=== PATIENT | male | born 1930 | race Hispanic/Latino ===

== ENCOUNTER 2016-08-01 08:52 | Inpatient (IN) | payer MEDICARE, OTHER ==
--- NOTE | 2016-08-01 09:22 | C.PDOC ---
History Of Present Illness Patient is an 85 year old male with a history of severe aortic stenosis with gradually worsening SOB/ROSARIO for 6 months who was referred by Dr. Mosley for a cardiac cath today. Patient states he was cleared to eat toast this morning by Dr. Mosley. Has no associated chest pain, nausea, vomiting, swelling or fever. REFERRED DR MOSLEY FOR CARDIAC CATH TODAY. HO SEVERE AORTIC STENOSIS W GRADUALLY WORSENING SOB/ROSARIO X 6 MONTHS. NO ASSOC CP, NV, SWELL. NO FEVER. PS WAS CLEARED TO EAT TOAST THIS MORNING BY DR MOSLEY EXAM NEG Time Seen by Provider: 08/01/16 09:10 Chief Complaint (Nursing): Medical Clearance History Per: Patient History/Exam Limitations: no limitations Onset/Duration Of Symptoms: Hrs Current Symptoms Are (Timing): Still Present Past Medical History Reviewed: Historical Data, Nursing Documentation, Vital Signs Vital Signs: Last Vital Signs Temp 97.6 F 08/02/16 13:17 Pulse 69 08/02/16 13:17 Resp 18 08/02/16 13:17 BP 126/72 08/02/16 13:17 Pulse Ox 96 08/02/16 13:17 - Medical History Other PMH: Aortic stenosis - Hyperpot Procedures MEASURE CARDIAC SAMPL & PRESSURE, BILATERAL, PERC (08/01/16) PLAIN RADIOGRAPHY OF MULT COR ART USING OTH CONTRAST (08/01/16) PLAIN RADIOGRAPHY OF RIGHT AND LEFT HEART USING OTH CONTRAST (08/01/16) Family History: States: Unknown Family Hx - Social History Hx Alcohol Use: No Hx Substance Use: No - Immunization History Hx Tetanus Toxoid Vaccination: No Hx Influenza Vaccination: No Hx Pneumococcal Vaccination: No Review Of Systems Except As Marked, All Systems Reviewed And Found Negative. Constitutional: Negative for: Fever Cardiovascular: Negative for: Chest Pain Gastrointestinal: Negative for: Nausea, Vomiting Musculoskeletal: Negative for: Other (Swelling) Physical Exam - Physical Exam Appears: Well, Non-toxic Skin: Normal Color, Warm, Dry Head: Atraumatic, Normacephalic Oral Mucosa: Moist Chest: Symmetrical, No Tenderness Cardiovascular: Rhythm Regular, No Murmur Respiratory: Other (No acute respiratory distress. Patient speaking in complete sentences.) Gastrointestinal/Abdominal: Soft, No Tenderness Back: No CVA Tenderness Neurological/Psych: Oriented x3, Normal Speech, Normal Cognition ED Course And Treatment - Laboratory Results Result Diagrams: 08/02/16 10:45 08/02/16 07:50 ECG: Interpreted By Me ECG Rhythm: Sinus Rhythm, 1st Degree HB Interpretation Of ECG: TWI I, II, V4-6 NO PRIOR Rate From EC O2 Sat by Pulse Oximetry: 96 Pulse Ox Interpretation: Normal Progress Note: Blood work, EKG, labor crew supervisor, and urinalysis ordered. IV fluids ordered. - Physician Consult Information Time Consulting Physician Contacted: 09:20 Physician Contacted: Fam Aguiar Outcome Of Conversation: C/F PMD, WILL ADMIT Disposition Counseled Patient/Family Regarding: Studies Performed, Diagnosis - Disposition Disposition: HOSPITALIZED Disposition Time: :22 Condition: STABLE - POA Present On Arrival: None - Clinical Impression Clinical Impression: Dyspnea, Aortic stenosis, Abnormal electrocardiogram - Scribe Statement The provider has reviewed the documentation as recorded by the Scribe Osorio Haywood All medical record entries made by the Scribe were at my direction and personally dictated by me. I have reviewed the chart and agree that the record accurately reflects my personal performance of the history, physical exam, medical decision making, and the department course for this patient. I have also personally directed, reviewed, and agree with the discharge instructions and disposition. Decision To Admit - Pt Status Changed To: Hospital Disposition Of: Inpatient - Admit Certification Admit to Inpatient:: After my assessment, the patient will require hospitalization for at least two midnights. This is because of the severity of symptoms shown, intensity of services needed, and/or the medical risk in this patient being treated as an outpatient. - InPatient: Physician Admission Certification: I certify that this patient requires 2 or more midnights of care for the following reason:: SEE NOTE - . Bed Request Type: Telemetry Admitting Physician: Fam Aguiar Patient Diagnosis: Dyspnea, Aortic stenosis, Abnormal electrocardiogram
[2016-08-01] MEDS ORDERED: Sodium Chloride 0.9% 1,000 ML IV ONE ×2 (09:23→14:16)
--- NOTE | 2016-08-01 09:39 | RAD ---
PROCEDURE: CHEST RADIOGRAPH, 1 VIEW HISTORY: Pre Op COMPARISON: None available. FINDINGS: LUNGS: There is mild pulmonary venous congestion. There is no focal consolidation. PLEURA: No pneumothorax or pleural fluid seen. CARDIOVASCULAR: There is moderate cardiomegaly. Atherosclerotic aortic arch calcifications are present. . OSSEOUS STRUCTURES: Within normal limits for the patient's age. VISUALIZED UPPER ABDOMEN: Normal. OTHER FINDINGS: None. IMPRESSION: Moderate cardiomegaly and mild pulmonary venous congestion. No active pulmonary disease.
[2016-08-01 10:11] LABS: BASO # 0.1 K/uL (0.0-0.2); BASO % 0.8 % (0.0-2.0); EOS # 0.2 K/uL (0.0-0.7); EOS % 2.3 % (0.0-4.0); HEMATOCRIT 39.6 % (35.0-51.0); LYMPH # 0.9 K/uL (1.0-4.3); LYMPH % 14.1 % (20.0-40.0); MEAN CELL VOLUME 91.4 fL (80.0-94.0); MEAN CORPUSCULAR HEMOGLOBIN 30.1 pg (27.0-31.0); MEAN CORPUSCULAR HGB CONC 32.9 g/dL (33.0-37.0); MEAN PLATELET VOLUME 11.3 fL (7.2-11.7); MONO # 0.6 K/uL (0.0-0.8); MONO % 9.2 % (0.0-10.0); NRBC % 0.1 % (0.0-2.0); WHITE BLOOD COUNT 6.7 K/uL (4.8-10.8)
[2016-08-01 10:17] LABS: CHLORIDE 102 mmol/L (98-107); POTASSIUM 4.5 mmol/L (3.6-5.2); SODIUM 135 mmol/L (132-148)
[2016-08-01 10:19] LABS: BILIRUBIN,TOTAL 1.6 mg/dL (0.2-1.3); GFR AFRICAN-AMERICAN > 60; INR 1.2
[2016-08-01 10:20] LABS: ALB/GLOB RATIO 1.4 (1.0-2.1); ALKALINE PHOSPHATASE 74 U/L (38-126); ALT/SGPT 11 U/L (21-72); AST/SGOT 28 U/L (17-59); BLOOD UREA NITROGEN 18 mg/dL (9-20); CARBON DIOXIDE 22 mmol/L (22-30); GLUCOSE,RANDOM 89 mg/dL (75-110); TOTAL PROTEIN 6.1 g/dL (6.3-8.3)
[2016-08-01 10:21] LABS: CALCIUM 7.7 mg/dl (8.6-10.4)
[2016-08-01 11:42] LABS: RBC URINE < 1 /hpf (0-3); URINE BILIRUBIN NEGATIVE (NEGATIVE); URINE BLOOD NEGATIVE (NEGATIVE); URINE COLOR Yellow (YELLOW); URINE GLUCOSE (UA) NORMAL (Normal); URINE KETONE NEGATIVE (NEGATIVE); URINE LEUKOCYTE ESTERASE NEG Leu/uL (Negative); URINE PROTEIN NEGATIVE (NEGATIVE); WBC URINE < 1 /hpf (0-5)
[2016-08-01] MEDS ORDERED: Midazolam 2 MG/2 ML VIAL ONE (12:30)
[2016-08-01] MEDS ORDERED: Lidocaine 2% Inj (20ml) ONE (12:39)
--- NOTE | 2016-08-01 13:22 | CP.PCM.HP ---
<Bryson Rachel - Last Filed: 08/01/16 15:52> History of Present Illness - History of Present Illness History of Present Illness: CC: heart valve replacement on 85 M with PMH of Aortic stenosis was sent to the ED by Dr. Mosley in anticipation of TAVR on . The patient has been steadily getting slower according to his son and was recently seen by Dr. Mosley. Echo showed significant aortic stenosis and Dr. Mosley suggested a valve replacement. Patient is set to receive a cardiac cath today. Further pre-op evaluations will be done this admission with a planned transfer to [facility] on for the valve replacement. He reports shortness of breath after walking 1-2 blocks, relieved by rest. Denies any pain. Patient sleeps with one pillow. Denied fever/chills, headache, sob, palpitations, cp, abd pain, n/v/d. PMD: Dr. Nafisa Mccoy Cardio: Dr. 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 Mccoy which leads to spontaneous bruises that resolve on their own, macular degeneration in the left eye, cataract in the right, t12 compression fracture. Abdominal aorta enlargement Meds: travatan eye drops 1 drop in each eye QHS, alphagan eye drops 1 drop in each eye BID, benefiber QAM, multivitamin Allergies: NKDA PSH: hernia surgery >10 years ago, appendectomy or cholecystectomy in adolescence FH: Mother had DM, at 62 yo Social: Lives alone in an apt on [facility]. Denies smoking, alcohol and illicit drug use. 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 6/6 ADLs. Present on Admission - Present on Admission Any Indicators Present on Admission: No History of DVT/PE: No History of Uncontrolled Diabetes: No Urinary Catheter: No Decubitus Ulcer Present: No Review of Systems - Review of Systems All systems: reviewed and no additional remarkable complaints except - Constitutional Constitutional: Weakness - Cardiovascular Cardiovascular: Dyspnea on Exertion (gets short of breath after walking 1- 2 blocks), Lightheadedness Past Patient History - Past Social History Smoking Status: Never Smoked Alcohol: None Drugs: Denies Home Situation {Lives}: Alone - HEENT Hx Macular Degeneration: Yes - PSYCHIATRIC Hx Substance Use: No - SURGICAL HISTORY Hx Herniorrhaphy: Yes - ANESTHESIA Hx Anesthesia: Yes Hx Anesthesia Reactions: No Meds Allergies/Adverse Reactions: Allergies Allergy/AdvReac Type Severity Reaction Status Date / Time No Known Allergies Allergy Verified 08/01/16 09:01 Physical Exam - Constitutional Appears: Well, Non-toxic - Head Exam Head Exam: ATRAUMATIC, NORMAL INSPECTION, NORMOCEPHALIC - Eye Exam Eye Exam: EOMI, Normal appearance Pupil Exam: PERRL - ENT Exam ENT Exam: Mucous Membranes Moist - Neck Exam Neck exam: Positive for: Normal Inspection - Respiratory Exam Respiratory Exam: Clear to Auscultation Bilateral, NORMAL BREATHING PATTERN - Cardiovascular Exam Cardiovascular Exam: Systolic Murmur (3/6 crescendo/decrescendo murmur) - GI/Abdominal Exam GI & Abdominal Exam: Normal Bowel Sounds, Soft. absent: Tenderness - Rectal Exam Rectal Exam: Deferred - Extremities Exam Extremities exam: Positive for: normal capillary refill, pedal pulses present. Negative for: calf tenderness - Back Exam Back exam: NORMAL INSPECTION. absent: CVA tenderness (L), CVA tenderness (R) - Neurological Exam Neurological exam: Alert, CN II-XII Intact, Normal Gait (ambulates with a cane) , Oriented x3 - Psychiatric Exam Psychiatric exam: Normal Affect, Normal Mood - Skin Skin Exam: Dry, Intact, Normal Color, Warm Additional comments: cath site clean, dry, intact without hematoma dressing freshly placed Results - Vital Signs Recent Vital Signs: Last Vital Signs Temp 98.1 F 08/01/16 11:27 Pulse 69 08/01/16 11:27 Resp 16 08/01/16 11:27 BP 127/70 08/01/16 11:27 Pulse Ox 96 08/01/16 11:27 - Labs Result Diagrams: 08/01/16 10:05 08/01/16 10:05 Labs: Laboratory Results - last 24 hr 08/01/16 08/01/16 10:05 11:27 WBC 6.7 RBC 4.33 L Hgb 13.0 Hct 39.6 MCV 91.4 MCH 30.1 MCHC 32.9 L RDW 15.0 H Plt Count 132 MPV 11.3 Neut % (Auto) 73.6 Lymph % (Auto) 14.1 L [place] % (Auto) 9.2 Eos % (Auto) 2.3 Baso % (Auto) 0.8 Neut # 5.0 Lymph # 0.9 L [place] # 0.6 Eos # 0.2 Baso # 0.1 PT 13.2 H INR 1.2 APTT 30 Sodium 135 Potassium 4.5 Chloride 102 Carbon Dioxide 22 Anion Gap 16 BUN 18 Creatinine 0.9 Est GFR ( Amer) > 60 Est GFR (Non-Af Amer) > 60 Random Glucose 89 Calcium 7.7 L Total Bilirubin 1.6 H AST 28 ALT 11 L D Alkaline Phosphatase 74 Total Protein 6.1 L Albumin 3.6 Globulin 2.5 Albumin/Globulin Ratio 1.4 Urine Color Yellow Urine Clarity Clear Urine pH 6.0 Ur Specific Mans[place] 1.015 Urine Protein Negative Urine Glucose (UA) Normal Urine Ketones Negative Urine Blood Negative Urine Nitrate Negative Urine Bilirubin Negative Urine Urobilinogen 4.0 Ur Leukocyte Esterase Neg Urine WBC (Auto) < 1 Urine RBC (Auto) < 1 Blood Type O POSITIVE Antibody Screen Negative Assessment & Plan - Assessment and Plan (Free Text) Plan: 1. Aortic Stenosis Admit to telemetry Cardiology consult, Dr. Mosley, help appreciated Cardiac Cath: Nononbstructive coronaries, Pulm HTN, Severe aortic stenosis. Distal LAD 50% stenosis in intramuscular course. Transfer to [facility] for TAVR ASA 81 mg PO daily Lovenox 40 mg SC daily NS 50 cc/hr Crestor 5 mg PO HS Zofran 4 mg IVP Q6H PRN HA1C, TSH/T4, Lipid panel f/u daily labs I's & O's HHD 2. Prophylactic Measures Protonix 40 mg PO daily Lovenox 40 mg SC daily <Fam Aguiar - Last Filed: 08/01/16 17:00> Results - Vital Signs Recent Vital Signs: Last Vital Signs Temp 98.1 F 08/01/16 11:27 Pulse 69 08/01/16 11:27 Resp 16 08/01/16 11:27 BP 127/70 08/01/16 11:27 Pulse Ox 96 08/01/16 11:27 - Labs Result Diagrams: 08/01/16 10:05 08/01/16 10:05 Labs: Laboratory Results - last 24 hr 08/01/16 08/01/16 08/01/16 10:05 11:27 13:23 WBC 6.7 RBC 4.33 L Hgb 13.0 Hct 39.6 MCV 91.4 MCH 30.1 MCHC 32.9 L RDW 15.0 H Plt Count 132 MPV 11.3 Neut % (Auto) 73.6 Lymph % (Auto) 14.1 L [place] % (Auto) 9.2 Eos % (Auto) 2.3 Baso % (Auto) 0.8 Neut # 5.0 Lymph # 0.9 L [place] # 0.6 Eos # 0.2 Baso # 0.1 PT 13.2 H INR 1.2 APTT 30 Puncture Site Line pCO2 34 L pO2 95 HCO3 23.9 ABG pH 7.43 ABG Total CO2 23.6 ABG O2 Saturation 97.9 ABG Base Excess -1.2 ABG Hemoglobin 12.7 ABG Carboxyhemoglobin 1.6 H POC ABG HHb (Measured) 2.0 ABG Methemoglobin 1.0 Felix Test Na VBG pH 7.39 VBG pCO2 44 VBG HCO3 25.0 VBG O2 Sat (Calc) 67.5 H VBG Base Excess 1.2 Hgb O2 Saturation 95.3 Blood Gas Comments Ao Crit Value Read Back N Sodium 135 Potassium 4.5 Chloride 102 Carbon Dioxide 22 Anion Gap 16 BUN 18 Creatinine 0.9 Est GFR ( Amer) > 60 Est GFR (Non-Af Amer) > 60 Random Glucose 89 Calcium 7.7 L Total Bilirubin 1.6 H AST 28 ALT 11 L D Alkaline Phosphatase 74 Total Protein 6.1 L Albumin 3.6 Globulin 2.5 Albumin/Globulin Ratio 1.4 Urine Color Yellow Urine Clarity Clear Urine pH 6.0 Ur Specific [place] 1.015 Urine Protein Negative Urine Glucose (UA) Normal Urine Ketones Negative Urine Blood Negative Urine Nitrate Negative Urine Bilirubin Negative Urine Urobilinogen 4.0 Ur Leukocyte Esterase Neg Urine WBC (Auto) < 1 Urine RBC (Auto) < 1 Blood Type O POSITIVE Antibody Screen Negative Attending/Attestation - Attestation I have personally seen and examined this patient.: Yes I have fully participated in the care of the patient.: Yes I have reviewed all pertinent clinical information: Yes Notes (Text): Patient seen and examined with the resident. Agree with the resident's evaluation, assessment and plan. no acute symptoms but had symptoms of fatigue and sob at home planned cath today post cath reveals no cad plan tavr at [facility] ([facility])
[2016-08-01 13:27] LABS: DRAW SITE LINE; VENOUS BLOOD GAS BASE EXCESS 1.2 mmol/L (0.0-2.0); VENOUS BLOOD GAS PCO2 44 mmHg (40-60); VENOUS BLOOD PH 7.39 (7.32-7.43)
[2016-08-01 13:30] LABS: ARTERIAL BLOOD HGB O2 SAT 95.3 % (95.0-98.0); CARBOXYHEMOGLOBIN 1.6 % (0.5-1.5); DRAW SITE LINE
--- NOTE | 2016-08-01 14:14 | CP.PCM.PN ---
Subjective - Date & Time of Evaluation Date of Evaluation: 08/01/16 Time of Evaluation: 14:14 - Subjective Subjective: Patient s/p Cath 1. Non Obstructive Coronaries 2. Mild Pulmonary HTN 3. Severe and Normal EF by ECHO Patient for transfer to [facility] for TAVR Contacted [facility] and awaiting bed Objective - Vital Signs/Intake and Output Vital Signs (last 24 hours): Temp Pulse Resp BP Pulse Ox 98.1 F 69 16 127/70 96 08/01/16 11:27 08/01/16 11:27 08/01/16 11:27 08/01/16 11:27 08/01/16 11:27 - Medications Medications: Current Medications Sodium Chloride (Sodium Chloride 0.9%) 1,000 mls @ 100 mls/hr IV .Q10H ONE Stop: 08/01/16 19:22 - Labs Labs: 08/01/16 10:05 08/01/16 10:05 PT 13.2 SECONDS (9.7-12.2) H 08/01/16 10:05 INR 1.2 08/01/16 10:05 APTT 30 SECONDS (21-34) 08/01/16 10:05
--- NOTE | 2016-08-01 15:56 | CARDCATH ---
PROCEDURE DATE: 08/01/2016 PROCEDURES: Right and left heart catheterization. CLINICAL INDICATIONS: Severe symptomatic aortic stenosis. PERFORMING PHYSICIAN: Dr. Olu Mosley. PROCEDURE: After informed consent, patient was prepped and draped in the usual sterile fashion. 2% lidocaine was given in the right groin for local anesthesia. Using micropuncture technique, a long 6-Hong Konger sheath introduced into right common femoral artery. The patient has a dilated aortic root. To engage left main JL5 5-H[place] Konger catheter was used. Right coronary artery was engaged using 6-H[place] Konger JR4 catheter. Right heart catheterization was performed using the usual Palco-Alvaro catheter. The patient tolerated the procedure well. FINDINGS OF RIGHT HEART CATHETERIZATION: 1. PA pressure: PA 32 x 5, mean of 18, RV 30 x 4, PCW 26, RA 5. 2. Cardiac output 3.75 liters per minute, cardiac index 1.92 liters per minute per meter square body area. FINDINGS OF THE LEFT HEART CATHETERIZATION: 1. Left main coronary artery is patent. 2. Distal LAD has a 50% stenosis in the intramuscular course. Proximal and mid LAD is patent. Diagonal branches are patent. 3. Left circumflex and obtuse marginal branches are patent. 4. Right coronary artery is dominant ectatic but patent. CONCLUSION: 1. Nonobstructive coronaries. 2. Mild pulmonary hypertension. 3. Critical calcific and moderate AI by echocardiography. Olu Mosley MD cc: [id number] TT: 08/01/2016 15:55:10 cn MTDD
[2016-08-02 08:06] LABS: INR 1.1
[2016-08-02 08:07] LABS: CHLORIDE 101 mmol/L (98-107)
[2016-08-02 08:08] LABS: POTASSIUM 4.3 mmol/L (3.6-5.2); SODIUM 138 mmol/L (132-148)
[2016-08-02 08:10] LABS: CHOLESTEROL 188 mg/dL (0-199)
[2016-08-02 08:11] LABS: ALB/GLOB RATIO 1.3 (1.0-2.1); ALKALINE PHOSPHATASE 106 U/L (38-126); ALT/SGPT 11 U/L (21-72); AST/SGOT 28 U/L (17-59); BILIRUBIN,TOTAL 2.6 mg/dL (0.2-1.3); BLOOD UREA NITROGEN 16 mg/dL (9-20); CALCIUM 9.1 mg/dl (8.6-10.4); CARBON DIOXIDE 26 mmol/L (22-30); GFR AFRICAN-AMERICAN > 60; GLUCOSE,RANDOM 85 mg/dL (75-110); TOTAL PROTEIN 6.9 g/dL (6.3-8.3)
[2016-08-02 08:12] VITALS: RESP 18; O2SAT 96
[2016-08-02 08:41] LABS: THYROID STIMULATING HORMONE 1.68 mIU/L (0.46-4.68)
[2016-08-02] MEDS ORDERED: Enoxaparin 40 mg Syringe SC SCH (10:00)
[2016-08-02] MEDS ORDERED: Pantoprazole 40 mg EC Tab PO SCH (10:00)
[2016-08-02 11:46] LABS: BASO # 0.1 K/uL (0.0-0.2); BASO % 0.8 % (0.0-2.0); EOS # 0.2 K/uL (0.0-0.7); EOS % 2.6 % (0.0-4.0); HEMATOCRIT 44.3 % (35.0-51.0); LYMPH # 1.5 K/uL (1.0-4.3); LYMPH % 20.7 % (20.0-40.0); MEAN CORPUSCULAR HGB CONC 32.6 g/dL (33.0-37.0); MONO # 0.7 K/uL (0.0-0.8); MONO % 9.5 % (0.0-10.0); NRBC % 0.1 % (0.0-2.0); RED CELL DISTRIBUTION WIDTH 14.9 % (11.5-14.5); WHITE BLOOD COUNT 7.3 K/uL (4.8-10.8)
[2016-08-02 13:18] VITALS: BP 126/72; PULSE 69; TEMP 97.6
--- NOTE | 2016-08-02 14:01 | CP.PCM.PN ---
<Jana Rachely - Last Filed: 08/02/16 13:58> Subjective - Date & Time of Evaluation Date of Evaluation: 08/02/16 Time of Evaluation: 06:50 - Subjective Subjective: PGY-1 Medicine Progress Note for Dr. Aguiar Patient seen and examined at bedside. No acute event overnight. Patient resting in bed comfortably. He is postop day 1 for cardiac cath. Patient has no acute complaints today. Patient will be transferred possibly to [facility] for TAVR. Denies fever chills, chest pain, shortness of breath, palpitations, rash. Objective - Vital Signs/Intake and Output Vital Signs (last 24 hours): Temp Pulse Resp BP Pulse Ox 97.6 F 69 18 126/72 96 08/02/16 13:17 08/02/16 13:17 08/02/16 13:17 08/02/16 13:17 08/02/16 13:17 Intake and Output: 08/02/16 08/02/16 06:59 18:59 Intake Total 570 Output Total 400 Balance 170 - Medications Medications: Current Medications Aspirin (Ecotrin) 81 mg PO DAILY [facility] Last Admin: 08/02/16 09:52 Dose: 81 mg Enoxaparin Sodium (Lovenox) 40 mg SC DAILY [facility] Last Admin: 08/02/16 09:52 Dose: 40 mg Ondansetron HCl (Zofran Inj) 4 mg IVP Q6 PRN PRN Reason: Nausea/Vomiting Pantoprazole Sodium (Protonix Ec Tab) 40 mg PO DAILY [facility] Last Admin: 08/02/16 09:52 Dose: 40 mg Rosuvastatin Calcium (Crestor) 5 mg PO HS [facility] Last Admin: 08/01/16 22:18 Dose: 5 mg - Labs Labs: 08/02/16 10:45 08/02/16 07:50 PT 12.8 SECONDS (9.7-12.2) H 08/02/16 07:50 INR 1.1 08/02/16 07:50 APTT 31 SECONDS (21-34) 08/02/16 07:50 - Constitutional Appears: No Acute Distress - Head Exam Head Exam: ATRAUMATIC, NORMOCEPHALIC - Eye Exam Eye Exam: EOMI, Normal appearance Pupil Exam: PERRL - ENT Exam ENT Exam: Mucous Membranes Moist - Neck Exam Neck Exam: Normal Inspection - Respiratory Exam Respiratory Exam: Clear to Ausculation Bilateral, NORMAL BREATHING PATTERN - Cardiovascular Exam Cardiovascular Exam: REGULAR RHYTHM, +S1, +S2 - GI/Abdominal Exam GI & Abdominal Exam: Soft, Normal Bowel Sounds. absent: Tenderness - Extremities Exam Extremities Exam: Normal Capillary Refill. absent: Calf Tenderness, Pedal Edema Additional comments: cath site dressing clean/dry/intact without evidence of hematoma and pseudoaneurysm Patient toe are normal color with adequate perfusion - Back Exam Back Exam: absent: CVA tenderness (L), CVA tenderness (R) - Neurological Exam Neurological Exam: Alert, Awake, CN II-XII Intact, Oriented x3 - Psychiatric Exam Psychiatric exam: Normal Affect, Normal Mood - Skin Skin Exam: Dry, Intact, Normal Color, Warm. absent: Diaphoretic, Pallor, Rash Assessment and Plan - Assessment and Plan (Free Text) Plan: 1. Aortic Stenosis telemetry Cardiology consult, Dr. Mosley, help appreciated Cardiac Cath: Nononbstructive coronaries, Pulm HTN, Severe aortic stenosis. Distal LAD 50% stenosis in intramuscular course. Transfer to [facility] for TAVR ASA 81 mg PO daily Lovenox 40 mg SC daily Crestor 5 mg PO HS Zofran 4 mg IVP Q6H PRN HA1C, TSH/T4, Lipid panel f/u daily labs I's & O's HHD 2. Prophylactic Measures Protonix 40 mg PO daily Lovenox 40 mg SC daily <Fam Aguiar - Last Filed: 09/05/16 12:34> Objective - Vital Signs/Intake and Output Vital Signs (last 24 hours): Temp Pulse Resp BP Pulse Ox 97.6 F 69 18 126/72 96 08/02/16 13:17 08/02/16 13:17 08/02/16 13:17 08/02/16 13:17 08/05/16 07:38 - Labs Labs: 08/02/16 10:45 08/02/16 07:50 PT 12.8 SECONDS (9.7-12.2) H 08/02/16 07:50 INR 1.1 08/02/16 07:50 APTT 31 SECONDS (21-34) 08/02/16 07:50 Attending/Attestation - Attestation I have personally seen and examined this patient.: Yes I have fully participated in the care of the patient.: Yes I have reviewed all pertinent clinical information, including history, physical exam and plan: Yes Notes (Text): Patient seen and examined with the resident. Agree with the resident's evaluation, assessment and plan. 1. Aortic Stenosis telemetry Cardiology consult, Dr. Mosley, help appreciated Cardiac Cath: Nononbstructive coronaries, Pulm HTN, Severe aortic stenosis. Distal LAD 50% stenosis in intramuscular course. Transfer to [facility] for TAVR ASA 81 mg PO daily Lovenox 40 mg SC daily Crestor 5 mg PO HS Zofran 4 mg IVP Q6H PRN HA1C, TSH/T4, Lipid panel f/u daily labs I's & O's HHD
--- NOTE | 2016-08-02 15:06 | CP.PCM.DIS ---
<Bryson Rachel - Last Filed: 08/17/16 16:20> Provider - Provider Date of Admission: 08/01/16 09:23 Attending physician: Fam Aguiar MD Consults: Cardio: Dimitri Time Spent in preparation of Discharge (in minutes): 40 Diagnosis - Discharge Diagnosis (1) Aortic stenosis Status: Acute Comment: see hospital course (2) Dyspnea Status: Acute Comment: see hospital course Hospital Course - Lab Results Lab Results: Most Recent Lab Values WBC 7.3 K/uL (4.8-10.8) 08/02/16 10:45 RBC 4.81 Mil/uL (4.40-5.90) 08/02/16 10:45 Hgb 14.4 g/dL (12.0-18.0) 08/02/16 10:45 Hct 44.3 % (35.0-51.0) 08/02/16 10:45 MCV 92.0 fL (80.0-94.0) 08/02/16 10:45 MCH 30.0 pg (27.0-31.0) 08/02/16 10:45 MCHC 32.6 g/dL (33.0-37.0) L 08/02/16 10:45 RDW 14.9 % (11.5-14.5) H 08/02/16 10:45 Plt Count 146 K/uL (130-400) 08/02/16 10:45 MPV 12.0 fL (7.2-11.7) H 08/02/16 10:45 Neut % (Auto) 66.4 % (50.0-75.0) 08/02/16 10:45 Lymph % (Auto) 20.7 % (20.0-40.0) 08/02/16 10:45 [place] % (Auto) 9.5 % (0.0-10.0) 08/02/16 10:45 Eos % (Auto) 2.6 % (0.0-4.0) 08/02/16 10:45 Baso % (Auto) 0.8 % (0.0-2.0) 08/02/16 10:45 Neut # 4.8 K/uL (1.8-7.0) 08/02/16 10:45 Lymph # 1.5 K/uL (1.0-4.3) 08/02/16 10:45 [place] # 0.7 K/uL (0.0-0.8) 08/02/16 10:45 Eos # 0.2 K/uL (0.0-0.7) 08/02/16 10:45 Baso # 0.1 K/uL (0.0-0.2) 08/02/16 10:45 Differential Comment 08/02/16 10:45 PT 12.8 SECONDS (9.7-12.2) H 08/02/16 07:50 INR 1.1 08/02/16 07:50 APTT 31 SECONDS (21-34) 08/02/16 07:50 Puncture Site Line 08/01/16 13:23 pCO2 34 mm/Hg (35-45) L 08/01/16 13:23 pO2 95 mm/Hg (80-100) 08/01/16 13:23 HCO3 23.9 mmol/L (21-28) 08/01/16 13:23 ABG pH 7.43 (7.35-7.45) 08/01/16 13:23 ABG Total CO2 23.6 mmol/L (22-28) 08/01/16 13:23 ABG O2 Saturation 97.9 % (95-98) 08/01/16 13:23 ABG Base Excess -1.2 mmol/L (-2.0-3.0) 08/01/16 13:23 ABG Hemoglobin 12.7 g/dL (11.7-17.4) 08/01/16 13:23 ABG Carboxyhemoglobin 1.6 % (0.5-1.5) H 08/01/16 13:23 POC ABG HHb (Measured) 2.0 % (0.0-5.0) 08/01/16 13:23 ABG Methemoglobin 1.0 % (0.0-3.0) 08/01/16 13:23 Felix Test Na 08/01/16 13:23 VBG pH 7.39 (7.32-7.43) 08/01/16 13:23 VBG pCO2 44 mmHg (40-60) 08/01/16 13:23 VBG HCO3 25.0 mmol/L 08/01/16 13:23 VBG O2 Sat (Calc) 67.5 % (40-65) H 08/01/16 13:23 VBG Base Excess 1.2 mmol/L (0.0-2.0) 08/01/16 13:23 Hgb O2 Saturation 95.3 % (95.0-98.0) 08/01/16 13:23 Blood Gas Comments Ao 08/01/16 13:23 Crit Value Read Back N 08/01/16 13:23 Sodium 138 mmol/L (132-148) 08/02/16 07:50 Potassium 4.3 mmol/L (3.6-5.2) 08/02/16 07:50 Chloride 101 mmol/L (98-107) 08/02/16 07:50 Carbon Dioxide 26 mmol/L (22-30) 08/02/16 07:50 Anion Gap 16 (10-20) 08/02/16 07:50 BUN 16 mg/dL (9-20) 08/02/16 07:50 Creatinine 0.9 MG/DL (0.8-1.5) 08/02/16 07:50 Est GFR ( Amer) > 60 08/02/16 07:50 Est GFR (Non-Af Amer) > 60 08/02/16 07:50 Random Glucose 85 mg/dL (75-110) 08/02/16 07:50 Hemoglobin A1c 6.0 % (4.2-6.5) 08/02/16 07:50 Calcium 9.1 mg/dl (8.6-10.4) 08/02/16 07:50 Total Bilirubin 2.6 mg/dL (0.2-1.3) H 08/02/16 07:50 AST 28 U/L (17-59) 08/02/16 07:50 ALT 11 U/L (21-72) L 08/02/16 07:50 Alkaline Phosphatase 106 U/L (38-126) 08/02/16 07:50 Total Protein 6.9 g/dL (6.3-8.3) 08/02/16 07:50 Albumin 3.9 g/dL (3.5-5.0) 08/02/16 07:50 Globulin 3.1 gm/dL (2.2-3.9) 08/02/16 07:50 Albumin/Globulin Ratio 1.3 (1.0-2.1) 08/02/16 07:50 Triglycerides 81 mg/dL (0-149) 08/02/16 07:50 Cholesterol 188 mg/dL (0-199) 08/02/16 07:50 LDL Cholesterol Direct 100 mg/dL (0-129) 08/02/16 07:50 HDL Cholesterol 57 mg/dL (30-70) 08/02/16 07:50 Thyroxine (T4) 8.90 ug/dL (5.5-11.0) 08/02/16 07:50 TSH 3rd Generation 1.68 mIU/L (0.46-4.68) 08/02/16 07:50 Urine Color Yellow (YELLOW) 08/01/16 11:27 Urine Clarity Clear (Clear) 08/01/16 11:27 Urine pH 6.0 (5.0-8.0) 08/01/16 11:27 Ur Specific [place] 1.015 (1.003-1.030) 08/01/16 11:27 Urine Protein Negative mg/dL (NEGATIVE) 08/01/16 11:27 Urine Glucose (UA) Normal mg/dL (Normal) 08/01/16 11:27 Urine Ketones Negative mg/dL (NEGATIVE) 08/01/16 11:27 Urine Blood Negative (NEGATIVE) 08/01/16 11:27 Urine Nitrate Negative (NEGATIVE) 08/01/16 11:27 Urine Bilirubin Negative (NEGATIVE) 08/01/16 11:27 Urine Urobilinogen 4.0 mg/dL (0.2-1.0) 08/01/16 11:27 Ur Leukocyte Esterase Neg Brown/uL (Negative) 08/01/16 11:27 Urine WBC (Auto) < 1 /hpf (0-5) 08/01/16 11:27 Urine RBC (Auto) < 1 /hpf (0-3) 08/01/16 11:27 Blood Type O POSITIVE 08/01/16 10:05 Antibody Screen Negative 08/01/16 10:05 - Hospital Course Hospital Course: 85 M with PMH of Aortic stenosis was sent to the ED by Dr. Mosley in anticipation of TAVR on . The patient has been steadily getting slower according to his son and was recently seen by Dr. Mosley. Echo showed significant aortic stenosis and Dr. Mosley suggested a valve replacement. Patient is set to receive a cardiac cath today. Further pre-op evaluations will be done this admission with a planned transfer to [facility] on for the valve replacement. He reports shortness of breath after walking 1-2 blocks, relieved by rest. Denies any pain. Patient sleeps with one pillow. Denied fever/chills, headache, sob, palpitations, cp, abd pain, n/v/d. Patient was admitted for Aortic stenosis. Cardiology consulted, Dr. Mosley, help appreciated. Patient was taken for Cardiac Cath which showed Nononbstructive coronaries, Pulm HTN, and Severe aortic stenosis. Distal LAD 50% stenosis in intramuscular course was also noted. Patient was started on crestor, ASA, and lovenox. The next day, patient was transferred to [facility] for TAVR. Patient was cleared for transfer by Dr. Mosley and hospitalist. This is a summary of the hospital course. Please refer to EMR for more specific details. Discharge Plan - Follow Up Plan Condition: STABLE Disposition: Trans to Other Acute Care Hosp Additional Instructions: Patient transferred to [facility] for TAVR Referrals: Olu Mosley MD [Staff Provider] - <Fam Aguiar - Last Filed: 09/15/16 12:31> Provider - Provider Date of Admission: 08/01/16 09:23 Attending physician: Fam Aguiar MD Hospital Course - Lab Results Lab Results: Most Recent Lab Values WBC 7.3 K/uL (4.8-10.8) 08/02/16 10:45 RBC 4.81 Mil/uL (4.40-5.90) 08/02/16 10:45 Hgb 14.4 g/dL (12.0-18.0) 08/02/16 10:45 Hct 44.3 % (35.0-51.0) 08/02/16 10:45 MCV 92.0 fL (80.0-94.0) 08/02/16 10:45 MCH 30.0 pg (27.0-31.0) 08/02/16 10:45 MCHC 32.6 g/dL (33.0-37.0) L 08/02/16 10:45 RDW 14.9 % (11.5-14.5) H 08/02/16 10:45 Plt Count 146 K/uL (130-400) 08/02/16 10:45 MPV 12.0 fL (7.2-11.7) H 08/02/16 10:45 Neut % (Auto) 66.4 % (50.0-75.0) 08/02/16 10:45 Lymph % (Auto) 20.7 % (20.0-40.0) 08/02/16 10:45 [place] % (Auto) 9.5 % (0.0-10.0) 08/02/16 10:45 Eos % (Auto) 2.6 % (0.0-4.0) 08/02/16 10:45 Baso % (Auto) 0.8 % (0.0-2.0) 08/02/16 10:45 Neut # 4.8 K/uL (1.8-7.0) 08/02/16 10:45 Lymph # 1.5 K/uL (1.0-4.3) 08/02/16 10:45 [place] # 0.7 K/uL (0.0-0.8) 08/02/16 10:45 Eos # 0.2 K/uL (0.0-0.7) 08/02/16 10:45 Baso # 0.1 K/uL (0.0-0.2) 08/02/16 10:45 Differential Comment 08/02/16 10:45 PT 12.8 SECONDS (9.7-12.2) H 08/02/16 07:50 INR 1.1 08/02/16 07:50 APTT 31 SECONDS (21-34) 08/02/16 07:50 Puncture Site Line 08/01/16 13:23 pCO2 34 mm/Hg (35-45) L 08/01/16 13:23 pO2 95 mm/Hg (80-100) 08/01/16 13:23 HCO3 23.9 mmol/L (21-28) 08/01/16 13:23 ABG pH 7.43 (7.35-7.45) 08/01/16 13:23 ABG Total CO2 23.6 mmol/L (22-28) 08/01/16 13:23 ABG O2 Saturation 97.9 % (95-98) 08/01/16 13:23 ABG Base Excess -1.2 mmol/L (-2.0-3.0) 08/01/16 13:23 ABG Hemoglobin 12.7 g/dL (11.7-17.4) 08/01/16 13:23 ABG Carboxyhemoglobin 1.6 % (0.5-1.5) H 08/01/16 13:23 POC ABG HHb (Measured) 2.0 % (0.0-5.0) 08/01/16 13:23 ABG Methemoglobin 1.0 % (0.0-3.0) 08/01/16 13:23 Felix Test Na 08/01/16 13:23 VBG pH 7.39 (7.32-7.43) 08/01/16 13:23 VBG pCO2 44 mmHg (40-60) 08/01/16 13:23 VBG HCO3 25.0 mmol/L 08/01/16 13:23 VBG O2 Sat (Calc) 67.5 % (40-65) H 08/01/16 13:23 VBG Base Excess 1.2 mmol/L (0.0-2.0) 08/01/16 13:23 Hgb O2 Saturation 95.3 % (95.0-98.0) 08/01/16 13:23 Blood Gas Comments Ao 08/01/16 13:23 Crit Value Read Back N 08/01/16 13:23 Sodium 138 mmol/L (132-148) 08/02/16 07:50 Potassium 4.3 mmol/L (3.6-5.2) 08/02/16 07:50 Chloride 101 mmol/L (98-107) 08/02/16 07:50 Carbon Dioxide 26 mmol/L (22-30) 08/02/16 07:50 Anion Gap 16 (10-20) 08/02/16 07:50 BUN 16 mg/dL (9-20) 08/02/16 07:50 Creatinine 0.9 MG/DL (0.8-1.5) 08/02/16 07:50 Est GFR ( Amer) > 60 08/02/16 07:50 Est GFR (Non-Af Amer) > 60 08/02/16 07:50 Random Glucose 85 mg/dL (75-110) 08/02/16 07:50 Hemoglobin A1c 6.0 % (4.2-6.5) 08/02/16 07:50 Calcium 9.1 mg/dl (8.6-10.4) 08/02/16 07:50 Total Bilirubin 2.6 mg/dL (0.2-1.3) H 08/02/16 07:50 AST 28 U/L (17-59) 08/02/16 07:50 ALT 11 U/L (21-72) L 08/02/16 07:50 Alkaline Phosphatase 106 U/L (38-126) 08/02/16 07:50 Total Protein 6.9 g/dL (6.3-8.3) 08/02/16 07:50 Albumin 3.9 g/dL (3.5-5.0) 08/02/16 07:50 Globulin 3.1 gm/dL (2.2-3.9) 08/02/16 07:50 Albumin/Globulin Ratio 1.3 (1.0-2.1) 08/02/16 07:50 Triglycerides 81 mg/dL (0-149) 08/02/16 07:50 Cholesterol 188 mg/dL (0-199) 08/02/16 07:50 LDL Cholesterol Direct 100 mg/dL (0-129) 08/02/16 07:50 HDL Cholesterol 57 mg/dL (30-70) 08/02/16 07:50 Thyroxine (T4) 8.90 ug/dL (5.5-11.0) 08/02/16 07:50 TSH 3rd Generation 1.68 mIU/L (0.46-4.68) 08/02/16 07:50 Urine Color Yellow (YELLOW) 08/01/16 11:27 Urine Clarity Clear (Clear) 08/01/16 11:27 Urine pH 6.0 (5.0-8.0) 08/01/16 11:27 Ur Specific [place] 1.015 (1.003-1.030) 08/01/16 11:27 Urine Protein Negative mg/dL (NEGATIVE) 08/01/16 11:27 Urine Glucose (UA) Normal mg/dL (Normal) 08/01/16 11:27 Urine Ketones Negative mg/dL (NEGATIVE) 08/01/16 11:27 Urine Blood Negative (NEGATIVE) 08/01/16 11:27 Urine Nitrate Negative (NEGATIVE) 08/01/16 11:27 Urine Bilirubin Negative (NEGATIVE) 08/01/16 11:27 Urine Urobilinogen 4.0 mg/dL (0.2-1.0) 08/01/16 11:27 Ur Leukocyte Esterase Neg Brown/uL (Negative) 08/01/16 11:27 Urine WBC (Auto) < 1 /hpf (0-5) 08/01/16 11:27 Urine RBC (Auto) < 1 /hpf (0-3) 08/01/16 11:27 Blood Type O POSITIVE 08/01/16 10:05 Antibody Screen Negative 08/01/16 10:05 Attending/Attestation - Attestation I have personally seen and examined this patient.: Yes I have fully participated in the care of the patient.: Yes I have reviewed all pertinent clinical information, including history, physical exam and plan: Yes Notes (Text): Patient was admitted for Aortic stenosis. Cardiology consulted, Dr. Mosley, help appreciated. Patient was taken for Cardiac Cath which showed Nononbstructive coronaries, Pulm HTN, and Severe aortic stenosis. Distal LAD 50% stenosis in intramuscular course was also noted. Patient was started on crestor, ASA, and lovenox. The next day, patient was transferred to [facility] for TAVR. Patient was cleared for transfer by Dr. Mosley and hospitalist.
--- NOTE | 2016-08-02 20:38 | CP.PCM.PN ---
Subjective - Date & Time of Evaluation Date of Evaluation: 08/02/16 Time of Evaluation: 07:05 - Subjective Subjective: Patient seen and evaluated. Denies chest pain and dyspnea No groin issues Physical examination - Constitutional Appears: No Acute Distress - Head Exam Head Exam: ATRAUMATIC, NORMOCEPHALIC - Eye Exam Eye Exam: EOMI, Normal appearance Pupil Exam: PERRL - ENT Exam ENT Exam: Mucous Membranes Moist - Neck Exam Neck Exam: Normal Inspection - Respiratory Exam Respiratory Exam: Clear to Ausculation Bilateral, NORMAL BREATHING PATTERN - Cardiovascular Exam Cardiovascular Exam: REGULAR RHYTHM, +S1, +S2 - GI/Abdominal Exam GI & Abdominal Exam: Soft, Normal Bowel Sounds. absent: Tenderness - Extremities Exam Extremities Exam: Normal Capillary Refill. absent: Calf Tenderness, Pedal Edema Additional comments: cath site dressing clean/dry/intact without evidence of hematoma and pseudoaneurysm Patient toe are normal color with adequate perfusion - Back Exam Back Exam: absent: CVA tenderness (L), CVA tenderness (R) - Neurological Exam Neurological Exam: Alert, Awake, CN II-XII Intact, Oriented x3 - Psychiatric Exam Psychiatric exam: Normal Affect, Normal Mood - Skin Skin Exam: Dry, Intact, Normal Color, Warm. absent: Diaphoretic, Pallor, Rash Objective - Vital Signs/Intake and Output Vital Signs (last 24 hours): Temp Pulse Resp BP Pulse Ox 97.6 F 69 18 126/72 96 08/02/16 13:17 08/02/16 13:17 08/02/16 13:17 08/02/16 13:17 08/02/16 13:17 - Labs Labs: 08/02/16 10:45 08/02/16 07:50 PT 12.8 SECONDS (9.7-12.2) H 08/02/16 07:50 INR 1.1 08/02/16 07:50 APTT 31 SECONDS (21-34) 08/02/16 07:50 Assessment and Plan - Assessment and Plan (Free Text) Assessment: 85 Male with severe Symptomatic Aortic stenosis Non obstructive coronaries Transfer to [facility] for TAVR
--- NOTE | 2016-08-08 22:19 | CARD ---
APPROVED REPORT EXAM: Two-dimensional and M-mode echocardiogram with Doppler and color Doppler. Other Information Quality : GoodRhythm : NSR INDICATION Abnormal EKG/Arrhythmia Aortic Valve Disease Dyspnea LEFT VENTRICLE The left ventricle is normal size. The left ventricular function is normal. The left ventricular ejection fraction is within the normal range. There is normal LV segmental wall motion. No left ventricle thrombus noted on this study. There is no ventricular septal defect visualized. There is no left ventricular aneurysm. RIGHT VENTRICLE The right ventricle is normal size. The right ventricular systolic function is normal. ATRIA The left atrium is mildly dilated. The right atrium is mildly dilated. The interatrial septum is intact with no evidence for an atrial septal defect. AORTIC VALVE The aortic valve is severely calcified. The aortic valve is tri-cuspid. There is moderate aortic regurgitation. There is severe valvular aortic stenosis. MITRAL VALVE Mitral annular calcification is mild to moderate. Mitral regurgitation is mild to moderate. TRICUSPID VALVE There is mild to moderate tricuspid regurgitation. PULMONIC VALVE The pulmonary valve is normal in structure. GREAT VESSELS The aortic root is normal in size. <Conclusion> Normal LV systolic function Critical (MARILEE 0.5 sqcm)
== END 2016-08-02 14:35 | disposition short-term general hospital (02) | DRG 287 ==
LOC: C.ER 08:52 → C.9E 09:23 → C.6T 12:19
PROVIDERS: ADMIT Internal Medicine; ATTEND Internal Medicine
PROC: 4A023N8 Measurement of Cardiac Sampling and Pressure, Bilateral, Percutaneous Approach (ICD-10-PCS; principal; 2016-08-01)
PROC: B201YZZ Plain Radiography of Multiple Coronary Arteries using Other Contrast (ICD-10-PCS; 2016-08-01)
PROC: B206YZZ Plain Radiography of Right and Left Heart using Other Contrast (ICD-10-PCS; 2016-08-01)
DX: I35.0 Nonrheumatic aortic (valve) stenosis (principal); I27.2 Other secondary pulmonary hypertension